=== PATIENT | female | born 1990 | race Caucasian/White ===

== ENCOUNTER → 2021-11-29 10:52 | Outpatient (CLI) | payer MEDICAID, SELFPAY ==
[2021-11-29 12:19] LABS: HCG,Quantitative 7773 mIU/ml (0-5.42)
== END ==
PROVIDERS: PCP Emergency Medicine; Visit Provider Obstetrics & Gynecology
DX: N92.6 Irregular menstruation, unspecified (principal)
CPT/HCPCS: 36415; 84702

== ENCOUNTER → 2021-12-12 12:14 | Outpatient (CLI) | payer MEDICAID, SELFPAY ==
[2021-12-12 13:14] LABS: Basophils % 0.3 % (0.1-2.0); Eosinophils % 0.1 % (0.1-12.0); Hematocrit 42.8 % (37.0-47.0); Hemoglobin 13.7 g/dL (12.2-16.2); Lymphocytes # 2.6 K/mm3 (0.7-4.5); Lymphocytes % 21.5 % (10-50); Mean Corpuscular Hemoglobin 29.6 pg (27.0-31.2); Mean Corpuscular Volume 92.6 fl (81-99); Mean Platelet Volume 7.7 fl (7.4-10.4); Monocytes # 0.8 K/mm3 (0.1-1.0); Monocytes % 6.9 % (1.7-9.3); Neutrophils # 8.5 K/mm3 (1.8-7.8); Neutrophils % 71.2 % (37.0-80.0); Platelet Count 399 K/mm3 (142-424); Red Blood Count 4.63 M/mm3 (4.20-5.40); Red Cell Distribution Width 13.1 % (11.5-17.5); White Blood Count 11.9 K/mm3 (4.8-10.8)
[2021-12-12 20:19] LABS: Benzodiazepines Screen,Urine Negative ng/ml (<200)
[2021-12-12 20:20] LABS: Amphetamine/Metha Screen,Urine Negative ng/ml (<1000)
[2021-12-12 20:21] LABS: Barbiturates Screen,Urine Negative ng/ml (<200); Cannabinoid Screen,Urine Positive ng/ml (<50)
[2021-12-12 20:22] LABS: Cocaine Screen,Urine Negative ng/ml (<300)
[2021-12-12 20:23] LABS: Methadone Screen,Urine Negative ng/ml (<300); Opiate Screen,Urine Negative ng/ml (<300)
[2021-12-12 20:24] LABS: Phencyclidine Screen,Urine Negative ng/ml (<25)
[2021-12-14 08:13] LABS: HIV Screen 4th Generation wRfx Non Reactive (Non Reactive); Hepatitis B Surface Antigen Negative (Negative); Hepatitis C Antibody <0.1 s/co ratio (0.0-0.9)
[2021-12-14 09:16] LABS: Rapid Plasma Reagin Ab Titer Non Reactive (NonRea<1:1)
== END ==
PROVIDERS: PCP Emergency Medicine; Visit Provider Obstetrics & Gynecology
DX: Z34.90 Encounter for supervision of normal pregnancy, unspecified, unspecified trimester (principal); F19.11 Other psychoactive substance abuse, in remission
CPT/HCPCS: 36415; 80305; 85025; 86592; 86703; 86762; 86850; 87086; 87088; 87186; 87340; 87380; G0432

== ENCOUNTER → 2022-03-13 12:49 | Outpatient (CLI) | payer MEDICAID, SELFPAY ==
--- NOTE | 2022-03-13 12:50 | US_ITS ---
FINAL REPORT CLINICAL HISTORY: 20 WEEK ANATOMY SCAN FINDINGS: There is a single live intrauterine gestation. Presentation is breech. The cervix is closed and measures 3.6 cm. Placenta is posterior, grade 1. Cardiac activity is confirmed at 142 bpm. movement is noted. Three-vessel cord with satisfactory umbilical cord insertion. Four-chamber heart is noted. AMNIOTIC FLUID: Appropriate amount. MEASUREMENTS: ULTRASOUND AGE: 20 weeks 1 days. GESTATION AGE: 20 weeks 4 days. ESTIMATED WEIGHT: 354 g GROWTH PERCENTILE: 38% LMP percentile BPD: 4.5 cm corresponding with 19 weeks 4 days. OFD: 6 cm corresponding with 20 weeks 3 days. HC: 16.6 cm corresponding with 19 weeks 3 days. AC: 15.4 cm corresponding with 20 weeks 5 days. FL: 3.4 cm corresponding to 20 weeks 5 days. CEREBELLUM: 2.1 cm corresponding with 21 weeks 6 days. HUMERUS: 3.2 cm corresponding with 20 weeks 5 days. HC/AC: 1.08 CI: 74% FL/BPD: 76% FL/AC: 22% IMPRESSION: Single living IUP with an ultrasound age of 20 weeks 1 day. No gross anomaly identified. Reviewed, Interpreted and Dictated by Kaiser Alvarez MD Transcribed by Rajwinder San Authenticated and [facility]
== END ==
PROVIDERS: PCP Obstetrics & Gynecology; Visit Provider Obstetrics & Gynecology
DX: Z34.90 Encounter for supervision of normal pregnancy, unspecified, unspecified trimester (principal); Z3A.20 20 weeks gestation of pregnancy
CPT/HCPCS: 76811

== ENCOUNTER → 2022-04-18 09:49 | Outpatient (CLI) | payer MEDICAID, SELFPAY ==
[2022-04-18 10:00] LABS: MANUAL DIFFERENTIAL MANUAL DIFFERENTIAL (MANUAL DIFF)
[2022-04-18 10:26] LABS: Basophils # 0.1 K/mm3 (0-0.2); Basophils % 0.8 % (0.1-2.0); Eosinophils # 0.2 K/mm3 (0.0-0.4); Eosinophils % 1.9 % (0.1-12.0); Hematocrit 38.1 % (37.0-47.0); Hemoglobin 12.5 g/dL (12.2-16.2); Mean Corpuscular HGB Conc 32.9 g/dL (31.8-35.4); Mean Corpuscular Hemoglobin 31.9 pg (27.0-31.2); Mean Platelet Volume 7.6 fl (7.4-10.4); Monocytes # 0.5 K/mm3 (0.1-1.0); Monocytes % 4.6 % (1.7-9.3); Neutrophils # 8.7 K/mm3 (1.8-7.8); Neutrophils % 75.7 % (37.0-80.0); Platelet Count 347 K/mm3 (142-424); Red Blood Count 3.93 M/mm3 (4.20-5.40); Red Cell Distribution Width 13.2 % (11.5-17.5); White Blood Count 11.5 K/mm3 (4.8-10.8)
[2022-04-18 10:42] LABS: Glucose,Fasting 85 mg/dl (74-100)
[2022-04-18 10:43] LABS: Amphetamine/Metha Screen,Urine Negative ng/ml (<1000); Barbiturates Screen,Urine Negative ng/ml (<200); Lymphocytes % 17 % (10-50); Monocytes % 3 % (2-9); Neutrophils % 80 % (42-76); Platelet Estimate Normal; RBC Morphology Normal; Total Cells Counted 100
[2022-04-18 10:44] LABS: Benzodiazepines Screen,Urine Negative ng/ml (<200)
[2022-04-18 10:45] LABS: Cannabinoid Screen,Urine Negative ng/ml (<50); Cocaine Screen,Urine Negative ng/ml (<300)
[2022-04-18 10:46] LABS: Methadone Screen,Urine Negative ng/ml (<300); Opiate Screen,Urine Negative ng/ml (<300)
[2022-04-18 10:47] LABS: Phencyclidine Screen,Urine Negative ng/ml (<25)
[2022-04-18 12:19] LABS: Glucose 1 Hour 155 mg/dL (74-100)
== END ==
PROVIDERS: PCP Obstetrics & Gynecology; Visit Provider Obstetrics & Gynecology
DX: Z34.90 Encounter for supervision of normal pregnancy, unspecified, unspecified trimester (principal); Z3A.19 19 weeks gestation of pregnancy; F12.90 Cannabis use, unspecified, uncomplicated
CPT/HCPCS: 36415; 80305; 82951; 85007; 85014; 85018; 85048; 85049

== ENCOUNTER → 2022-04-26 09:12 | Outpatient (CLI) | payer MEDICAID, SELFPAY ==
[2022-04-26 09:51] LABS: Glucose,Fasting 91 mg/dl (74-100)
[2022-04-26 11:01] LABS: Glucose 1 Hour 122 mg/dL (74-100)
[2022-04-26 12:05] LABS: Glucose 2 Hour 97 mg/dL (74-100)
[2022-04-26 13:19] LABS: Glucose 3 Hour 80 mg/dL (74-100)
== END ==
PROVIDERS: Visit Provider Obstetrics & Gynecology
DX: Z34.90 Encounter for supervision of normal pregnancy, unspecified, unspecified trimester (principal); Z3A.19 19 weeks gestation of pregnancy
CPT/HCPCS: 36415; 82951

== ENCOUNTER → 2022-07-04 16:42 | Outpatient (CLI) | payer MEDICAID, SELFPAY | PROVIDERS: Visit Provider Obstetrics & Gynecology | DX: Z34.90 Encounter for supervision of normal pregnancy, unspecified, unspecified trimester (principal); Z3A.19 19 weeks gestation of pregnancy | CPT/HCPCS: 86403 ==

== ENCOUNTER 2022-07-22 16:08 | Inpatient (IN) | payer MEDICAID, SELFPAY ==
[2022-07-22 16:42] VITALS: BMI 33.0
[2022-07-22 17:12] LABS: Microscopic, Urine URINE MICROSCOPIC (MICROSCOPIC)
[2022-07-22 17:12] LABS: Coronavirus 19, PCR Not Detected (NotDetected); Influenza A, PCR Not Detected (NotDetected); Influenza B, PCR Not Detected (NotDetected)
[2022-07-22 17:16] LABS: Basophils % 0.4 % (0.1-2.0); Eosinophils # 0.2 K/mm3 (0.0-0.4); Eosinophils % 1.5 % (0.1-12.0); Hematocrit 43.5 % (37.0-47.0); Hemoglobin 14.3 g/dL (12.2-16.2); Lymphocytes # 2.3 K/mm3 (0.7-4.5); Lymphocytes % 21.3 % (10-50); Mean Corpuscular HGB Conc 32.9 g/dL (31.8-35.4); Mean Corpuscular Hemoglobin 30.8 pg (27.0-31.2); Mean Corpuscular Volume 93.6 fl (81-99); Mean Platelet Volume 8.3 fl (7.4-10.4); Monocytes # 0.7 K/mm3 (0.1-1.0); Monocytes % 6.2 % (1.7-9.3); Neutrophils # 7.6 K/mm3 (1.8-7.8); Neutrophils % 70.6 % (37.0-80.0); Platelet Count 315 K/mm3 (142-424); Red Blood Count 4.65 M/mm3 (4.20-5.40); Red Cell Distribution Width 13.2 % (11.5-17.5); White Blood Count 10.8 K/mm3 (4.8-10.8)
[2022-07-22 17:18] LABS: Appearance,Urine SL CLOUDY (Clear); Bilirubin,Urine Negative (Negative); Blood, Urine 3+ (Negative); Color,Urine YELLOW (Yellow); Glucose,Urine (UA) Negative (Negative); Ketones,Urine Negative (Negative); Leukocyte Esterase,Urine Negative (Negative); Nitrate,Urine Negative (Negative); PH,Urine 6.5 (5.0-8.5); Protein,Urine 3+ (Negative); Specific Gravity, Urine >= 1.030 (1.005-1.030); Urobilinogen,Urine 0.2 EU/dl (0.2)
[2022-07-22 17:29] VITALS: BMI 33.0
[2022-07-22 17:29] LABS: Amphetamine/Metha Screen,Urine Negative ng/ml (<1000)
[2022-07-22 17:30] LABS: Barbiturates Screen,Urine Negative ng/ml (<200)
[2022-07-22 17:31] LABS: Benzodiazepines Screen,Urine Negative ng/ml (<200); Cannabinoid Screen,Urine Negative ng/ml (<50)
[2022-07-22 17:32] LABS: Cocaine Screen,Urine Negative ng/ml (<300)
[2022-07-22 17:33] LABS: Methadone Screen,Urine Negative ng/ml (<300)
[2022-07-22 17:35] LABS: Opiate Screen,Urine Negative ng/ml (<300); Phencyclidine Screen,Urine Negative ng/ml (<25)
[2022-07-22 17:53] LABS: Bacteria,Urine 1+ /lpf; Squamous Epithelial Cell,Urine 20-50 #/hpf (0-5); WBC,Urine Occasional #/hpf (0-3)
[2022-07-22 20:00] VITALS: BP 143/79; PULSE 75; RESP 19; TEMP 36.9; O2SAT 98
--- NOTE | 2022-07-23 07:41 | EXP.OB.APHP ---
OB - H&P: HPI Antepartum History of Present Illness Chief complaint: Elective induction of labor History of present illness: Ms Chiquita Stauffer is a 32 yo at 39w3d who presents for scheduled elective induction of labor. Admits to pelvic cramping. Baby is very active. History of Present Criteria for establishing EDC:: LMP confirmed by 1st trimester US care: good care Ultrasounds: normal mid trimester US Obstetrical complications: none Labs Blood type: O (+) positive Rubella: immune RPR/VDRL: nonreactive GBS status: negative HBsAG: negative PFSH PFSH Disclaimer: The information contained in this section may have been updated after the patient was seen, as this information can be updated by other users. Medical History (Updated 07/23/22 @ 07:52 by Ivonne Anguiano DO) Encounter for elective induction of labor Headache History of drug abuse History of kidney stones History of ovarian cyst History of pilonidal cyst Marijuana use Nausea and vomiting complicated by Suboxone maintenance, antepartum with 39 completed weeks gestation Screening for genetic disease carrier status Surgical History History of renal stent Hx of cholecystectomy Family History Other Diabetes Heart attack Social History Smoking Status: Current every day smoker alcohol intake: never substance use type: marijuana and other details: suboxone- 5 years current occupational status: other Travel in the last 8 weeks: None Review of Systems Review of Systems Review of systems:: pertinent systems reviewed and negative unless documented below Meds Home Medications and Allergies Home Medications Medication Instructions Recorded Confirmed Type buprenorphine 8 mg-naloxone 2 mg 1 tab sublingual DAILY Withdrawl 04/29/22 07/23/22 History sublingual tablet pediatric multivitamin no.7-folic 1 tab PO DAILY Supplement 06/02/22 07/23/22 History acid 100 mcg chewable tablet (Flintstones Multi-Vitamins Gummies) ferrous sulfate 325 mg (65 mg 325 mg PO DAILY Supplement 07/23/22 07/23/22 History iron) tablet magnesium oxide 800 mg PO BID Supplement 07/23/22 07/23/22 History New Prescriptions to Start Prescriptions: Allergies Allergy/AdvReac Type Severity Reaction Status Date / Time ibuprofen [From MOTRIN] Allergy Unknown I-RASH Verified 07/17/22 16:01 OB - H&P: Exam Physical Exam Vital signs: Temp Pulse Resp BP Pulse Ox 98.4 F 75 19 143/79 H 98 07/22/22 20:00 07/22/22 20:00 07/22/22 20:00 07/22/22 20:00 07/22/22 20:00 Constitutional no acute distress Routine HEENT Exam Head: Present normocephalic and atraumatic Eye: Absent conjunctivae pink ENT: Present mucous membranes moist Routine Neck Exam Present full ROM Routine Respiratory Exam Present CTA bilaterally and normal respiratory effort Routine Cardiovascular Exam Present RRR Routine Abdominal Exam Present soft (Gravid); Absent tenderness Routine Rectal Exam Patient deferred: visual exam Routine Exam Patient deferred: external exam Routine Extremities Exam Present full ROM; Absent edema or calf tenderness Routine Neurological Exam Present alert, oriented X3 and moving all extremities Routine Psychiatric Exam Present normal affect and cooperative Detailed Labor and Delivery Exam Dilation (cm): 2 Effacement (%): 75 Cervix position: mid station: -3 Consistency: soft Membranes: artificially ruptured (amniotomy performed at 0703 with amnihook) Amniotic fluid: clear Baseline heart rate: 120 monitor accelerations: Present monitor decelerations: None residential variability: Moderate (11-25) Contraction frequency (min): 4 OB - Results Labs Labs: Short CBC 07/22/22 Range/Units 16:57 WBC
--- NOTE | 2022-07-23 08:15 | P.CONPHA_ITS ---
Pharmacy Intervention Comments: Reconciled patient's home medications using pharmacy fill history and ENRICHMENT DIRECTOR encounter notes.
--- NOTE | 2022-07-23 08:15 | HMH.PHAINT1 ---
Pharmacy Intervention Comments: Reconciled patient's home medications using pharmacy fill history and SALESPERSON [employer]OES encounter notes.
--- NOTE | 2022-07-23 16:13 | EXP.LABOR.NO ---
Labor Note Subjective: Date: 07/23/22 Time: 16:13 Objective: NST:: Reactive Contractions:: every 2-3 minutes Cervical Dilation:: 5-6 Effacement:: 90% Station: -1 Membranes: artificially ruptured Fetus: Monitoring?: Yes Problems: (1) with 39 completed weeks gestation: Category: Medical Code(s): Z3A.39 - 39 weeks gestation of (2) Encounter for elective induction of labor: Category: Medical Code(s): Z34.90 - Encounter for supervision of normal , unspecified, unspecified trimester (3) complicated by Suboxone maintenance, antepartum: Category: Medical Code(s): O99.320 - Drug use complicating , unspecified trimester; F11.20 - Opioid dependence, uncomplicated (4) Non-reassuring heart tones complicating , antepartum: Category: Medical Code(s): O36.8390 - Maternal care for abnormalities of the heart rate or rhythm, unspecified trimester, not applicable or unspecified Plan: Additional information:: Patient has epidural in place FHT is category 2 with moderate variability, recurrent decelerations alternating between variable, late and early. Decelerations respond temporarily to maternal position change. Cervix is 5-6/90/-1 with significant molding. Discussed heart rate tracing. Discussed recommendation for primary secondary to nonreassuring heart tones remote from delivery. Patient voiced agreement and understanding. Discussed risks, benefits, alternatives, expectations and possible complications of surgery. All questions addressed answered. She voiced understanding of risks and possible complications. Consent form signed. Pitocin was discontinued and heart strip improved with accelerations noted.
[2022-07-23 17:22] LABS: Cord Blood PH 7.44 (7.35-7.45)
--- NOTE | 2022-07-23 18:07 | EXP.OP.NOTE ---
Date of procedure: 07/23/22 Pre-op Diagnosis:: 1. IUP at 39w3d 2. Elective induction of labor 3. Suboxone use in 4. Nonreassuring heart tones remote from delivery Post-op Diagnosis:: 1. IUP at 39w3d 2. Elective induction of labor 3. Suboxone use in 4. Nonreassuring heart tones remote from delivery Procedure performed:: Primary low transverse section Surgeon:: Ivonne Anguiano DO Tower Operator(s):: Laurie Oconnor MD GRAIN GRADER:: Reyna Hamilton Anesthesia: epidural Estimated blood loss (mL): 800 Clinical Note:: Ms Chiquita Stauffer is a 32 yo at 39w3d who presents for scheduled elective induction of labor. She underwent induction of labor with Cervidil followed by Pitocin. GBS negative. Patient progressed to 5/90/-1. FHT tracing category 2 with moderate variability, recurrent decelerations alternating between variable, late and early. Decelerations responded temporarily to maternal position change. Cervix is 5-6/90/-1 with significant molding. Discussed heart rate tracing. Discussed recommendation for primary secondary to nonreassuring heart tones remote from delivery. Patient voiced agreement and understanding. Discussed risks, benefits, alternatives, expectations and possible complications of surgery. All questions addressed answered. She voiced understanding of risks and possible complications. Consent form signed. Pitocin was discontinued and heart strip improved with accelerations noted. Operative findings:: 1. Live female baby (baby's name is Amador Pepper) weighing 6 lb 8 oz, APGARs 8, 9 2. Grossly normal appearing uterus, bilateral fallopian tubes and ovaries Operative note:: The risks, benefits and alternatives of the procedure were reviewed with the patient. Informed consent was obtained. Patient was taken to the operating room where epidural was bolused. The patient received 2 grams of Ancef preoperatively. Patient was placed in dorsal supine position with a leftward tilt. SCDs in place. Gomez catheter had been placed and was draining clear urine prior to the start of the procedure. heart tones were obtained. Vagina was prepped with Betadine swabs x 3. Patient was then prepped and draped in normal sterile fashion. Allis clamp test was performed to ensure adequate anesthesia. A Pfannenstiel skin incision was made 2 cm above pubic symphysis. This was carried through to underlying layer of fascia. Fascia was incised in midline, extended laterally with Mayfield scissors. Superior aspect of fascial incision was grasped with two Gage clamps, elevated up, and rectus muscle dissected off bluntly and sharply with Mayfield scissors. The retcus muscle was then in the midline and the peritoneum was entered bluntly with a digit. Peritoneal incision was then extended superiorly and inferiorly with good visualization of the bladder. Sylvain retractor was inserted. The lower uterine segment was incised in a transverse fashion. Clear amniotic fluid was noted. Head was delivered without difficulty. Remainder of body was delivered without difficulty. Mouth and nares were bulb suctioned. Spontaneous cry was noted. Delayed cord clamping was performed for 60 seconds. The umbilical cord was clamped and cut. The was handed to awaiting pediatric staff in stable condition. Dr. Guerra was present. Apgars were 8(1 min), 9(5 min). Cord blood was obtained. Gentle traction on the umbilical cord and uterine fundal massage delivered the placenta. Placenta was intact. Uterus was cleared of all clots and debris with a moist laparotomy sponge. Corners of the uterine incision were grasped with Allis clamps. The uterine incision was reapproximated with # 1 Vicryl suture in a running, locked stitch. Second layer of the same stitch was used to imbricate the incision. Excellent hemostasis was noted. Posterior cul-de-sac was cleaned with moist laparotomy sponge. (Uterus returned to the abdomen)Gutters cleare
[2022-07-23 18:15] VITALS: BP 166/106; PULSE 70; RESP 16; TEMP 36.2; O2SAT 100
--- NOTE | 2022-07-23 18:22 | EXP.ANES.I ---
[facility] Anesthesia Record Part I Anesthesia Record I Intake, IV Amount: 1,800 Estimated blood loss (mL): 800 Urine output (mL): 500 Blood Pressure: 161/99 SaO2: 100 Pulse Rate: 72 Respiratory Rate: 15 Temperature: 97.6 F Patient is:: Awake Stable to PACU at:: 18:15
[2022-07-23 18:23] VITALS: BP 161/99; PULSE 72; RESP 15; TEMP 36.4; O2SAT 100
[2022-07-23 18:25] VITALS: BP 146/98; PULSE 68; RESP 14; O2SAT 100
[2022-07-23 18:35] VITALS: BP 144/81; PULSE 72; RESP 15; O2SAT 98
[2022-07-23 18:45] VITALS: BP 156/87; PULSE 71; RESP 16; TEMP 36.2; O2SAT 98
[2022-07-23 19:22] VITALS: TEMP 43
[2022-07-24 06:51] LABS: Basophils % 0.2 % (0.1-2.0); Eosinophils % 0.2 % (0.1-12.0); Hemoglobin 12.5 g/dL (12.2-16.2); Lymphocytes % 13.9 % (10-50); Mean Corpuscular Hemoglobin 30.7 pg (27.0-31.2); Mean Corpuscular Volume 93.1 fl (81-99); Mean Platelet Volume 7.9 fl (7.4-10.4); Monocytes # 0.8 K/mm3 (0.1-1.0); Monocytes % 5.2 % (1.7-9.3); Neutrophils # 11.5 K/mm3 (1.8-7.8); Neutrophils % 80.5 % (37.0-80.0); Platelet Count 278 K/mm3 (142-424); Red Blood Count 4.09 M/mm3 (4.20-5.40); Red Cell Distribution Width 13.3 % (11.5-17.5); White Blood Count 14.3 K/mm3 (4.8-10.8)
[2022-07-24 08:00] VITALS: BP 123/61; PULSE 80; RESP 18; TEMP 37.4; O2SAT 96
[2022-07-24 11:11] VITALS: BP 156/87; PULSE 71; TEMP 36.2
--- NOTE | 2022-07-24 11:11 | EXP.ANES.II ---
[facility] Anesthesia Record Part II Anesthesia Record Part II Discharge Time: 18:45 Destination: Obstetric PACU nurse assessment reviewed?: Yes Patient Condition:: Good Anesthesia Complications:: None Swallowing reflex intact?: Yes Cyanosis?: No Blood Pressure: 156/87 Pulse Rate: 71 Temperature: 97.2 F Mental Status: Alert & Oriented Pain level:: 5 Nausea and/or vomitting:: None Intake, IV Amount: 0
[2022-07-24 12:19] VITALS: RESP 18
--- NOTE | 2022-07-24 12:48 | EXP.ACUTE.PN ---
Subjective *Date: 07/24/22 *Time: 12:48 Interval history: POD # 1 s/p PLTCS Resting comfortably in bed. Pain is somewhat controlled. She is breast feeding. Appropriate lochia. Voiding without difficulty and passing flatus. Tolerating regular diet. Ambulating well ad nelia. Denies fever/chills, chest pain and shortness of breath. Denies headaches, dizziness and lightheadedness. Medical Exam Vital signs and Labs for Last 24 Hours: Vital Signs Temp Pulse Pulse Resp BP BP Pulse Ox 07/24/22 12:19 18 07/24/22 08:00 99.3 F 80 18 123/61 96 07/23/22 18:45 97.2 F L 71 16 156/87 H 98 07/23/22 18:35 72 15 144/81 H 98 07/23/22 18:25 68 14 146/98 H 100 07/23/22 18:15 97.2 F L 70 16 166/106 H 100 07/24/22 11:11 97.2 F L 71 156/87 H 07/23/22 18:23 97.6 F 72 15 161/99 H Intake and Output 07/23/22 07/24/22 07/24/22 23:59 07:59 15:59 Intake Total 1800 / 1800 0 / 0 Output Total 400 / 400 Balance 1800 / 1800 -400 / -400 Intake: Intake, Total IV Amount 1800 / 1800 0 / 0 Output: Output, Urine Amount 400 / 400 Laboratory Results - last 24 hr 07/23/22 17:18: Cord ABG pH 7.44 07/24/22 06:35: WBC 14.3 H D, RBC 4.09 L, Hgb 12.5, Hct 38.0, MCV 93.1, MCH 30.7, MCHC 33.0, RDW 13.3, Plt Count 278, MPV 7.9, Neut % (Auto) 80.5 H, Lymph % (Auto) 13.9, [place] % (Auto) 5.2, Eos % (Auto) 0.2, Baso % (Auto) 0.2, Neut # (Auto) 11.5 H, Lymph # (Auto) 2.0, [place] # (Auto) 0.8, Eos # (Auto) 0.0, Baso # (Auto) 0.0 I & O for Labs for Last 24 Hours: Intake & Output 07/21/22 07/22/22 07/23/22 07/24/22 23:59 23:59 23:59 23:59 Intake Total 1800 / 1800 0 / 0 Output Total 400 / 400 Balance 1800 / 1800 -400 / -400 Weight 224 lb Head: Present atraumatic and normocephalic ENT: Present mucous membranes moist Neck: Present normal inspection and full ROM Respiratory: Present CTA bilaterally and normal respiratory effort Cardiac: Present Reg Rate and Rhythm GI: Present soft; Absent distention or tenderness Comments:: Uterine fundus firm and below umbilicus, pfannenstiel incision clean/dry/intact with steri strips in place Rectal (female): Present deferred (female): Present deferred Extremities: Present full ROM; Absent edema or calf tenderness Assessment and Plan *Assessment and plan (1) with 39 completed weeks gestation: Status: Acute Category: Medical Code(s): Z3A.39 - 39 weeks gestation of (2) S/P section: Status: Acute Category: Surgical Code(s): Z98.891 - History of uterine scar from previous surgery (3) Encounter for elective induction of labor: Status: Acute Category: Medical Code(s): Z34.90 - Encounter for supervision of normal , unspecified, unspecified trimester (4) Non-reassuring heart tones complicating , antepartum: Status: Acute Category: Medical Code(s): O36.8390 - Maternal care for abnormalities of the heart rate or rhythm, unspecified trimester, not applicable or unspecified (5) complicated by Suboxone maintenance, antepartum: Status: Acute Category: Medical Code(s): O99.320 - Drug use complicating , unspecified trimester; F11.20 - Opioid dependence, uncomplicated Plan Continue routine care Encouraged increased ambulation Plan d/c home POD # 2 or POD # 3
--- NOTE | 2022-07-24 14:32 | CARE MANAGER ---
Called [facility] regarding consult for suboxone clinic, thc and scoring. Mom and baby UDS are negative. Patient takes suboxone confirmed called [facility] per nursing (Yaneli De La Rosa) This is a first baby and patient has been most appropriate per nursing staff. Patient is already established with WIC, is aware of HANDS and will call herself at discharge if patient feels she needs it. JOHN Stauffer is present during interview and states that they have everything needed for the baby at home. Cord was sent. Baby is scoring at this time, with tremors. Ref # [id number] per Guillermina.
[2022-07-24 16:00] VITALS: BP 132/65; PULSE 79; RESP 18; TEMP 37; O2SAT 97
[2022-07-24 16:13] VITALS: RESP 18
--- NOTE | 2022-07-25 10:09 | EXP.ACUTE.PN ---
Subjective *Date: 07/25/22 *Time: 10:09 Interval history: POD # 2 s/p PLTCS Feeling well. Pain is controlled. She is breast feeding. Light lochia. Voiding without difficulty and passing flatus. Tolerating regular diet. Denies fever/chills, chest pain and shortness of breath. No dizziness or lightheadedness. Denies swelling. Ambulating well ad nelia. Medical Exam Vital signs and Labs for Last 24 Hours: Vital Signs Temp Pulse Pulse Resp BP BP Pulse Ox 07/24/22 16:00 98.6 F 79 18 132/65 97 07/24/22 16:13 18 07/24/22 12:19 18 07/24/22 11:11 97.2 F L 71 156/87 H I & O for Labs for Last 24 Hours: Intake & Output 07/22/22 07/23/22 07/24/22 07/25/22 23:59 23:59 23:59 23:59 Intake Total 1800 / 1800 0 / 0 Output Total 400 / 400 Balance 1800 / 1800 -400 / -400 Weight 224 lb Head: Present atraumatic and normocephalic ENT: Present normal exam and mucous membranes moist Neck: Present normal inspection and full ROM Respiratory: Present CTA bilaterally and normal respiratory effort Cardiac: Present Reg Rate and Rhythm GI: Present soft and normal bowel sounds; Absent distention or tenderness Comments:: Uterine fundus firm and below umbilicus, pfannenstiel incision clean/dry/intact with steri strips in place Rectal (female): Present deferred (female): Present deferred Extremities: Present normal inspection and full ROM; Absent edema or calf tenderness Neuro: Present alert, awake, oriented x 3 and moves all extremities Assessment and Plan *Assessment and plan (1) S/P section: Status: Acute Category: Surgical Code(s): Z98.891 - History of uterine scar from previous surgery (2) with 39 completed weeks gestation: Status: Acute Category: Medical Code(s): Z3A.39 - 39 weeks gestation of (3) Encounter for elective induction of labor: Status: Acute Category: Medical Code(s): Z34.90 - Encounter for supervision of normal , unspecified, unspecified trimester (4) Non-reassuring heart tones complicating , antepartum: Status: Acute Category: Medical Code(s): O36.8390 - Maternal care for abnormalities of the heart rate or rhythm, unspecified trimester, not applicable or unspecified (5) complicated by Suboxone maintenance, antepartum: Status: Acute Category: Medical Code(s): O99.320 - Drug use complicating , unspecified trimester; F11.20 - Opioid dependence, uncomplicated (6) Marijuana use: Status: Acute Category: Social Hx Code(s): F12.90 - Cannabis use, unspecified, uncomplicated Plan Continue routine care Plan d/c home tomorrow, POD # 3
--- NOTE | 2022-07-25 10:15 | CARE MANAGER ---
Addendum entered by Maggie Mccallum 07/29/22 10:52: cord screen is NEGATIVE. Original Note: Called [facility] back and reference number did not meet criteria per Jasmin. I did inform Jasmin that baby is still scoring, she states that patient is in a program and is compliant. No further needs at this time.
[2022-07-25 20:20] VITALS: BP 136/80; PULSE 79; RESP 18; TEMP 36.7; O2SAT 98
[2022-07-26 04:21] VITALS: BP 130/74; PULSE 72; RESP 16; TEMP 36.7; O2SAT 97
[2022-07-26 08:00] VITALS: BP 126/66; PULSE 65; RESP 20; TEMP 36.8; O2SAT 99
--- NOTE | 2022-07-26 10:45 | EXP.DC.SUM ---
General Admission date:: 07/22/22 HPI HPI HPI: s/p primary cs for non-reassuring heart tracing, remote from delivery Hospital Course Hospital Course Hospital Course: Postop course uneventful She is discharged home on POD #2 in stable condition She is ambulating and voiding without difficulty She is tolerating a regualar diet Lochia is appropriate and pain control has been sufficient She has pre-existing chronic pain management with suboxone and will continue this after discharge She reports an allergy to Ibuprofen but has been taking Toradol without any problems during this hospitalization Postop Hgb 12.5 Exam Data for Last 24 hours Vital signs and Labs for Last 24 Hours: Temp Pulse Resp BP Pulse Ox 98.2 F 65 20 126/66 99 07/26/22 08:00 07/26/22 08:00 07/26/22 08:00 07/26/22 08:00 07/26/22 08:00 I & O for Last 24 hours: Intake & Output 07/23/22 07/24/22 07/25/22 07/26/22 11:59 11:59 11:59 11:59 Intake Total 1800 / 1800 Output Total 400 / 400 Balance 1400 / 1400 Weight 224 lb Constitutional Constitutional: no acute distress *Routine HEENT Exam Head: Present normocephalic Eye: Absent conjunctival icterus or scleral injection ENT: Present mucous membranes moist *Routine Neck Exam Neck: Present supple *Routine Respiratory Exam Respiratory: Present CTA bilaterally *Routine Cardiovascular Exam Cardiovascular: Present RRR *Routine Abdominal Exam Abdominal: Present soft; Absent tenderness or distended *Routine Rectal Exam Patient deferred: visual exam and digital exam *Routine Exam Patient deferred: external exam Comments: Fundus firm below umbilicus *Routine Extremities Exam Extremities: Present edema *Routine Skin Exam Skin: Present intact and dry Comments: Incision intact without erythema or purulent drainage *Routine Neurological Exam Neurological: Present alert and oriented X3 Routine Psychiatric Exam Psychiatric: Present normal affect; Absent depressed DS: Diagnosis Discharge Diagnosis (1) S/P section: Status: Acute (2) with 39 completed weeks gestation: Status: Acute (3) Encounter for elective induction of labor: Status: Acute (4) Non-reassuring heart tones complicating , antepartum: Status: Acute (5) complicated by Suboxone maintenance, antepartum: Status: Acute (6) Marijuana use: Status: Acute Meds Home Medications and Allergies Home Medications Medication Instructions Recorded Confirmed Type buprenorphine 8 mg-naloxone 2 mg 1 tab sublingual DAILY Withdrawl 04/29/22 07/23/22 History sublingual tablet pediatric multivitamin no.7-folic 1 tab PO DAILY Supplement 06/02/22 07/23/22 History acid 100 mcg chewable tablet (Flintstones Multi-Vitamins Gummies) ferrous sulfate 325 mg (65 mg 325 mg PO DAILY Supplement 07/23/22 07/23/22 History iron) tablet magnesium oxide 800 mg PO BID Supplement 07/23/22 07/23/22 History ketorolac 10 mg tablet 10 mg PO Q6H #24 tabs 07/26/22 Rx New Prescriptions to Start Prescriptions: Laurie Yi Allergies Allergy/AdvReac Type Severity Reaction Status Date / Time ibuprofen [From MOTRIN] Allergy Unknown I-RASH Verified 07/17/22 16:01 Discharge Plan Disposition Patient Disposition: Home, Self-Care Discharge Order Discharge Orders: Discharge Order (Routine); Ordered 07/26/22 Ordered By: Laurie Oconnor Follow up Plan Follow up with: Ivonne Anguiano DO [Staff Physician] - 08/05/22 11:15 am Prescriptions/Medication Reconciliation: New ketorolac 10 mg Tablet 10 mg PO Q6H Qty: 24 0RF Continued buprenorphine-naloxone 8-2 mg tablet, sublingual 1 tab sublingual DAILY Label Comments: Filled from [facility] in [place], [place] No Action Flintstones Multi-Vit Gummies 100 mcg tablet,chewable 1 tab PO DAILY ferrous sulf
[2022-07-31 00:05] LABS: Buprenorphine Positive (.)
== END 2022-07-26 15:50 | disposition home or self-care (01) | DRG 787 ==
PROVIDERS: Admitting Provider Obstetrics & Gynecology; Visit Provider Obstetrics & Gynecology
PROC: 10D00Z1 Extraction of Products of Conception, Low, Open Approach (ICD-10-PCS; CPT 59514; principal; 2022-07-23 14:45)
DX: O76 Abnormality in fetal heart rate and rhythm complicating labor and delivery (principal); O99.324 Drug use complicating childbirth; Z3A.39 39 weeks gestation of pregnancy; Z37.0 Single live birth; O99.334 Smoking (tobacco) complicating childbirth; F17.210 Nicotine dependence, cigarettes, uncomplicated; F13.21 Sedative, hypnotic or anxiolytic dependence, in remission; F11.21 Opioid dependence, in remission; Z79.891 Long term (current) use of opiate analgesic
CPT/HCPCS: 59514; 36415; 59025; 80305; 80348; 81001; 82800; 85025; 86850; 94761; C9290; C9803; G0283; J0574; J0595; J0696; J2405; J2505; U0003; U0005

== ENCOUNTER 2023-10-29 13:10 | Outpatient (CLI) | payer MEDICAID, SELFPAY ==
--- NOTE | 2023-10-29 13:10 | US_ITS ---
PROCEDURE: US TRANSVAGINAL CLINICAL INDICATION: right lower quad pain COMPARISON: No exams were available for comparison FINDINGS: Transvaginal sonographic images of the pelvis were obtained. UTERUS: 7.7 cm x 5.0cmx 4.0cm anteverted with a combined endometrial thickness of 3mm. There is an anterior fibroid measuring 0.6 cm x 0.7 cm x 0.6 cm. A scar is seen. LEFT OVARY: 4.2cmx2.9 cmx1.8cm with a volume of 11.5ml. There is a dominant follicle in the left ovary measuring 1.1 cm. There are several other smaller follicles. RIGHT OVARY: 3.1 cmx 3.4cm There is a hyperechoic area measuring 1.5 cm x 2.6 cm x 1.6 cm. There is a 2nd ground-glass appearing cyst measuring 2.6 cm x 1.7 cm x 1.8 cm. Both ovaries are seen and appear normal. Doppler flow to both ovaries are seen. There is a small amount of fluid in the cul-de-sac. IMPRESSION: 1. Anteverted uterus normal in shape and size. The endometrium is thin measuring 3 mm. There is a 0.7 cm fibroid anteriorly. 2. The left ovary is seen and appears normal. There is a dominant follicle measuring 1.1 cm. 3. The right ovary contains a solid hyperechoic area measuring 2.6 cm. Possible dermoid cyst. Suggest follow-up in 3 months. 4. There is a 2nd ground-glass appearing cystic area in the right ovary measuring 2.6 cm. This could represent an endometrioma or resolving hemorrhagic cyst. 5. There is a small amount of fluid in the cul-de-sac. Dictated by: Smith Alicea MD 10/29/2023 16:08 Smith Alicea MD in OV 10/29/2023 16:08
== END 2023-10-29 23:59 | disposition home or self-care (01) ==
LOC: RAD 13:10
PROVIDERS: PCP Obstetrics & Gynecology; Visit Provider Obstetrics & Gynecology
DX: R10.2 Pelvic and perineal pain (principal); R10.31 Right lower quadrant pain
CPT/HCPCS: 76830

== ENCOUNTER 2024-02-08 14:08 | Outpatient (CLI) | payer MEDICAID, SELFPAY ==
--- NOTE | 2024-02-08 14:11 | US_ITS ---
PROCEDURE: US TRANSVAGINAL CLINICAL INDICATION: 3 month follow up COMPARISON: US US TRANSVAGINAL from 10/29/2023 FINDINGS: Transvaginal sonographic images of the pelvis were obtained. UTERUS: 8.0cm x 5.8 cmx 4.4cm anteverted with a combined endometrial thickness of 8.8mm. A scar is seen LEFT OVARY: 2.7 cmx2.7 cmx2.8cm with a volume of 10.8ml. There are multiple small peripheral follicles. RIGHT OVARY: 2.8 cmx 2.3cmx4.9 cm with a volume of 16.8ml. There is a follicle on the right ovary measuring 2.0 cm x 1.5 cm x 1.4 cm The previously described hyperechoic lesion in the inferior right ovary is still present and measures 1.6 cm x 1.8 cm x 1.5 cm. There has been no increase in the growth of this. Both ovaries are seen and appear normal. Doppler flow to both ovaries are seen. There is moderate fluid in the cul-de-sac. IMPRESSION: 1. Anteverted uterus normal in shape and size. The endometrium is normal and measures 8.8 mm. 2. The left ovary contains multiple small peripheral follicles. 3. The right ovary appears normal in contains a small follicle measuring 2.0 cm. The previously described hyperechoic region is still present and has not changed significantly in size. If anything it may be slightly smaller. Suggest repeat ultrasound in 3 months to see if this resolves. 4. There is moderate fluid in the cul-de-sac. Dictated by: Smith Alicea MD 02/08/2024 16:39 Smith Alicea MD in [place] 02/08/2024 16:39
== END 2024-02-08 23:59 | disposition home or self-care (01) ==
LOC: RAD 14:09
PROVIDERS: Visit Provider Obstetrics & Gynecology
DX: R10.31 Right lower quadrant pain (principal)
CPT/HCPCS: 76830

== ENCOUNTER 2024-06-10 12:36 | Outpatient (CLI) | payer MEDICAID, SELFPAY ==
--- NOTE | 2024-06-10 12:37 | US_ITS ---
PROCEDURE: US TRANSVAGINAL CLINICAL INDICATION: 3 month follow up right ovary COMPARISON: US US TRANSVAGINAL from 10/29/2023 US US TRANSVAGINAL from 02/08/2024 FINDINGS: Transvaginal sonographic images of the pelvis were obtained. UTERUS: 7.1cm x 5.3cmx 5.2cm retroverted with a combined endometrial thickness of 11.2mm. There is a small amount of fluid within the endometrial cavity. LEFT OVARY: 2.6 cmx2.8 cmx3.8cm with a volume of 14.2ml. There are several small follicles within the left ovary. The largest measures 1.0 cm RIGHT OVARY: 3.9 cmx 2.8 cmx 2.7 cm with a volume of 15.7ml. There are multiple small peripheral follicles giving the ovary a polycystic appearance. There is an ovoid hyperechoic area within the right ovary measuring 2.7 cm x 1.5 cm x by 1.7 cm. It has a heterogenous appearance. Possible dermoid cyst. It has not changed in size appreciably. There is a small amount of fluid adjacent to the right ovary. Both ovaries are seen. Doppler flow to both ovaries are seen. There is a small amount of fluid in the cul-de-sac. IMPRESSION: 1. Retroverted uterus normal in shape and size. The endometrium measures 11.2 mm. There is a small amount of fluid within the endometrial cavity. Likely benign. 2. The left ovary is seen and appears polycystic. There are number of small peripheral follicles giving the ovary a polycystic appearance. 3. Within the right ovary there continues to be a hyperechoic ovoid lesion measuring up to 2.7 cm in size. Likely a dermoid cyst and has not significantly changed in size since her last ultrasound 3 months ago. Continued follow-up every 3 months is suggested. Dictated by: Smith Alicea MD 06/11/2024 09:35 Smith Alicea MD in [place] 06/11/2024 09:35
== END 2024-06-10 23:59 | disposition home or self-care (01) ==
LOC: RAD 12:37
PROVIDERS: PCP Family Medicine; Visit Provider Obstetrics & Gynecology
DX: R10.31 Right lower quadrant pain (principal)
CPT/HCPCS: 76830

== ENCOUNTER 2024-08-30 09:53 | Outpatient (CLI) | payer MEDICAID, SELFPAY ==
--- NOTE | 2024-08-30 09:56 | XR_ITS ---
FINAL REPORT CLINICAL HISTORY: Right elbow pain COMPARISON: None FINDINGS: RIGHT ELBOW 3 views of the right elbow were obtained. There is no acute fracture or dislocation. The joint spaces are well-preserved. There is no acute soft tissue abnormality. IMPRESSION: No acute abnormality identified. Reviewed, Interpreted and Dictated by Ricardo Mcfadden MD Transcribed by Mallorie Head Authenticated and [facility]
== END 2024-08-30 23:59 | disposition home or self-care (01) ==
LOC: RAD 09:54
PROVIDERS: PCP Family Medicine; Visit Provider Orthopaedic Surgery
DX: M25.521 Pain in right elbow (principal)
CPT/HCPCS: 73080